=== PATIENT | male | born 1940 | race Caucasian/White ===

== ENCOUNTER 2017-01-08 15:31 | Inpatient (IN) | payer MEDICARE, BC ==
[~2017-01-08] VITALS: Ht 182.9 cm; Wt 114.1 kg
[2017-01-08] VITALS (15 sets, daily range): BP systolic 121–172; BP diastolic 61–84; PULSE 59–73; RESP 12–18; Ht 182.9 cm; Wt 114.1 kg
[~2017-01-08 15:31] MED LIST: ASPI-650 PO; LATA2.5D9 OP; LEVO100T82 PO; SILO8CAP PO
[2017-01-08] MEDS ORDERED: IODIXANOL LOCM 50 ML BTL ONE (15:44)
[2017-01-08] MEDS ORDERED: HEPARIN 1000 UNITS/ML 10 ML INJ ONE (15:44)
[2017-01-08] MEDS ORDERED: LIDOCAINE 2% (SDV) 5 ML INJ ONE (15:44)
[2017-01-08] MEDS ORDERED: IODIXANOL LOCM 100 ML BTL ONE (15:44)
[2017-01-08] MEDS ORDERED: NITROGLYCERIN (IC) 100 MCG/ML INJ ONE (15:45)
[2017-01-08] MEDS ORDERED: MIDAZOLAM 1 MG/ML 2 ML INJ ONE (15:45)
[2017-01-08] MEDS ORDERED: VERAPAMIL 5 MG INJ ONE (15:45)
[2017-01-08] MEDS ORDERED: FENTAnyl 50 MCG/ML VIAL ONE (15:45)
[2017-01-08] MEDS ORDERED: SOD CHLORIDE 0.9% 500 ML ONE (15:47)
[2017-01-08 15:51] LABS: BASOPHILS % 0.5 % (0.0-2.0); EOSINOPHILS # 0.1 10^3/ul (0.0-0.5); HEMATOCRIT 46.5 % (42.0-52.0); HEMOGLOBIN 15.9 g/dl (14.0-18.0); LYMPHOCYTES # 1.7 10^3/ul (0.8-2.9); LYMPHOCYTES % 18.4 % (15.0-51.0); MEAN CORPUSCULAR HEMOGLOBIN 29.4 pg (29.0-33.0); MEAN CORPUSCULAR HGB CONC 34.2 g/dl (32.0-37.0); MEAN PLATELET VOLUME 7.8 fl (7.4-10.4); MONOCYTE # 0.4 10^3/ul (0.3-0.9); MONOCYTES % 4.6 % (0.0-11.0); NEUTROPHIL # 6.9 10^3/ul (1.6-7.5); NEUTROPHILS % 75.5 % (39.0-77.0); PLATELET COUNT 220 10^3/UL (140-440); RED BLOOD COUNT 5.41 10^6/ul (4.70-6.10); RED CELL DISTRIBUTION WIDTH 13.2 % (11.5-14.5); UNCORRECTED WBC 9.2 10^3/ul (4.8-10.8); WHITE BLOOD COUNT 9.2 10^3/ul (4.8-10.8)
--- NOTE | 2017-01-08 15:55 | RADRPT ---
PROCEDURE: XR Chest. CLINICAL INDICATION: Chest pain TECHNIQUE: Chest AP portable. COMPARISON: No comparison available. FINDINGS: The mediastinal structures are unremarkable. There is calcification of the thoracic aorta (consiste nt with atherosclerosis). The heart is normal in size and configuration. The pulmonary vascularity i s normal. There are low lung volumes. There is mild bibasilar subsegmental atelectasis. The pleura l spaces are unremarkable. There are senescent changes of the axial skeleton. IMPRESSION: Mild bibasilar subsegmental atelectasis. RPTAT: HGDB .Gurpreet Mercer MD, Date Time Electronically viewed and signed by .Gurpreet Mercer MD, on 01/08/2017 15:55 .B/
[2017-01-08 15:57] LABS: CONDITION 1
[2017-01-08 15:59] LABS: POTASSIUM 4.6 mmol/L (3.5-5.1)
[2017-01-08 16:00] LABS: INR 0.96; PROTIME 12.8 Sec (12.2-14.2)
[2017-01-08] MEDS ORDERED: HEPARIN 1000 UNITS/ML 10 ML INJ IV ONE (16:00)
[2017-01-08] MEDS ORDERED: ASPIRIN 325 MG TAB PO ONE (16:00)
[2017-01-08 16:01] LABS: PARTIAL THROMBOPLASTIN TIME 27.6 Sec (25.0-35.0)
[2017-01-08 16:02] LABS: CREATININE 0.89 mg/dl (0.61-1.24)
[2017-01-08 16:03] LABS: CALCIUM 10.2 mg/dl (8.4-10.2)
[2017-01-08] MEDS ORDERED: TICAGRELOR 90 MG TABLET ONE (16:13)
--- NOTE | 2017-01-08 16:13 | ERA ---
ER Documentation Chief Complaint Date/Time DATE: 01/08/17 TIME: 16:09 Chief Complaint chest pain started x 1 hour ago HPI This is a 76-year-old male who presents to the emergency room with a chief complaint of chest pain. This patient states that he was doing yard work and noticed some chest pain in the center of his chest. He was a walk-in patient in in triage she did have an EKG done which did show ST elevation NV. The patient was immediately brought back to the main emergency room where I evaluated him. He describes his pain as a achy pain and pressure sensation in the center of his chest with no radiation. No associated nausea, vomiting, or diuresis ROS All systems reviewed and are negative except as per history of present illness. Medications Home Meds Reported Medications Aspirin (Aspirin) 81 Mg Tablet, 81 MG PO DAILY 12/11/12 Latanoprost (Xalatan) 2.5 Ml Drops, 2.5 ML OP HS 1 GTT BOTH EYES 12/11/12 Silodosin (Rapaflo) 8 Mg Capsule, 8 MG PO HS 12/11/12 Levothyroxine Sodium* (Levoxyl*) 100 Mcg Tablet, 100 MCG PO HS 12/11/12 Allergies Allergies: Coded Allergies: No Known Allergy (Unverified , 12/11/12) PMhx/Soc History of Surgery: Yes (KNEE,ANKLE) Anesthesia Reaction: No Hx Neurological Disorder: No Hx Respiratory Disorders: No Hx Cardiac Disorders: No Hx Psychiatric Problems: No Hx Miscellaneous Medical Probl: Yes (EPIDURALS) Hx Alcohol Use: No Hx Substance Use: No Hx Tobacco Use: No Smoking Status: Never smoker Physical Exam Vitals Vital Signs Date Time Temp Pulse Resp B/P Pulse Ox O2 Delivery O2 Flow Rate FiO2 01/08/17 15:50 Nasal Cannula 3 01/08/17 15:45 Nasal Cannula 2 01/08/17 15:42 97.8 73 18 178/85 95 Physical Exam INITIAL VITAL SIGNS: Reviewed by me GENERAL: The patient is well developed and appropriate for usual state of health in no apparent distress HEENT: Pupils equal, round, and reactive to light. EOMI. There is no scleral icterus. NECK: C-spine is soft and supple, there is no meningismus. There is no cervical lymphadenopathy. LUNGS: Clear to auscultation bilaterally. There are no rales, wheezes or rhonchi. HEART: Regular rate and rhythm, no murmurs, clicks, rubs or gallops. ABDOMEN: Soft, non-tender, non-distended. There are bowel sounds in all four quadrants. No rebound or guarding. EXTREMITIES: There is no peripheral cyanosis or edema. No focal swelling or erythema. NEUROLOGICAL: The patient moves all four extremities with 5/5 strength. Cranial nerves II - XII are intact. Normal gait. Alert and oriented SKIN: There is no apparent rash or petechiae. HEME/LYMPHATIC: There is no evidence of excessive bruising or lymphedema. PSYCHIATRIC: The patient does not appear anxious or depressed. Result Diagram: 01/08/17 1545 01/08/17 1545 Results 24 hrs Laboratory Tests Test 01/08/17 15:45 Activated Partial Thromboplast Time 27.6Sec Anion Gap 17 Basophils # 0.010^3/ul Basophils % 0.5% Blood Urea Nitrogen 20mg/dl Calcium Level 10.2mg/dl Carbon Dioxide Level 29mmol/L Chloride Level 100mmol/L Creatinine 0.89mg/dl Eosinophils # 0.110^3/ul Eosinophils % 1.0% Glucose Level 199mg/dl Hematocrit 46.5% Hemoglobin 15.9g/dl INR International Normalized Ratio 0.96 Lymphocytes # 1.710^3/ul Lymphocytes % 18.4% Mean Corpuscular Hemoglobin 29.4pg Mean Corpuscular Hemoglobin Concent 34.2g/dl Mean Corpuscular Volume 86.0fl Mean Platelet Volume 7.8fl Monocytes # 0.410^3/ul Monocytes % 4.6% Neutrophils # 6.910^3/ul Neutrophils % 75.5% Nucleated Red Blood Cells # 0.010^3/ul Nucleated Red Blood Cells % 0.0/100WBC Platelet Count 16612^3/UL Potassium Level 4.6mmol/L Prothrombin Time 12.8Sec Prothrombin Time Ratio 1.0 Red Blood Count 5.4110^6/ul Red Cell Distribution Width 13.2% Sodium Level 141mmol/L Troponin I Pending White Blood Count 9.210^3/ul Current Medications Medications (Trade) Dose Ordered Sig/Yoandy Route PRN Reason Start Time Stop Time Status Last Admin Dose Admin Aspirin (Aspirin) 325 mg ONCE ONCE PO 01/08/17 16:00 01/08/17 16:01 DC 2/19/17 15:48 Heparin Sodium (Porcine) (Heparin (1000 Units/ml)) 4,000 unit ONCE ONCE IV 01/08/17 16:00 01/08/17 16:01 DC 01/08/17 15:57 Procedures/MDM EKG: Rate/Rhythm: ST elevation NV QRS, ST, T-waves: ST elevation NV inferior leads Impression: ST elevation NV inferior leads Chest X-ray 1V Interpreted by me: Soft Tissue: No acute abnormalities Bones: No acute abnormalities Mediastinum/Cardiac Silhouette/Lungs: [No acute abnormalities] This is a 76-year-old male presents to the emergency room for evaluation of chest pain after doing yard work in his front yard. He did walk into the emergency room and had a triage EKG which showed ST elevation NV. At 1535 the patient was immediately brought back to the emergency room. I did activate code STEMI at 1539. Our women's swim coach, Dr. Cano was at bedside at 1544. This patient was then taken to lab support service tech. This patient's does state that the primary care physician is Dr. Zarate. I paged Dr. Zarate, and spoke with the on-call physician Dr. Toth who agrees to accept the patient at this time. Cardiac Critical Care: Excluding all billable procedures Time: 33 minutes Treatments/Evaluations: Close monitoring for dangerous arrhythmia and cardiovascular collapse, while treating with advance cardiac medications and techniques, multiple bedside evaluations, multiple consultations, coordination of nursing care, coordination of STEMI activation, chart review. Departure Diagnosis: Primary Impression: Acute ST elevation myocardial infarction (STEMI) Additional Impression: Chest pain Condition: Stable RIKY POWELL Jan 08, 2017 16:13
[2017-01-08 16:16] LABS: TROPONIN-I 0.278 ng/ml (0.00-0.12)
[2017-01-08] MEDS ORDERED: BIVALIRUDIN 250MG /NS 50 ML 50 ML IVPB ONE ×2 (16:24→16:53)
[2017-01-08] MEDS ORDERED: BIVALIRUDIN 250MG /NS 50 ML 50 ML IVPB SCH (16:45)
[2017-01-08] MEDS ORDERED: ACETAMINOPHEN 325 MG TAB PO PRN (17:00)
[2017-01-08] MEDS ORDERED: MAGNESIUM SULFATE 1 GM/D5W 100 ML IVPB ONE (17:00)
[2017-01-08] MEDS ORDERED: OXYCODONE/ACETAMINOPHEN (5/325) TAB PO PRN (17:00)
[2017-01-08] MEDS ORDERED: morphine 2 MG INJ IV PRN (17:00)
[2017-01-08] MEDS ORDERED: MAGNESIUM SULFATE 2 GM/50 ML 50 ML IVPB ONE (17:30)
[2017-01-08] MEDS: SOD CHLORIDE 0.9% 1,000 ML IV SCH ×2 (18:15→20:02)
[2017-01-08] MEDS: DOCUSATE SODIUM 100 MG CAP PO SCH (21:00)
[2017-01-08] MEDS ORDERED: AMIODARONE 150MG/D5W BOLUS 100 ML ONE (21:03)
[2017-01-08] MEDS: LEVOTHYROXINE 100 MCG TAB PO SCH (21:10)
[2017-01-08] MEDS: FAMOTIDINE 20 MG TAB PO SCH (21:11)
[2017-01-08] MEDS: TICAGRELOR 90 MG TABLET PO SCH (21:11)
[2017-01-08] MEDS: ATORVASTATIN 80 MG TAB PO SCH (21:11)
[2017-01-08] MEDS ORDERED: AMIODARONE 150MG/D5W BOLUS 100 ML IV ONE (21:30)
[2017-01-08] MEDS: ISOSORBIDE DINITRATE 20 MG TAB PO SCH (22:06)
[2017-01-08 22:07] LABS: CK-MB 54.2 ng/ml (0.0-2.4); TROPONIN-I 10.6 ng/ml (0.00-0.12)
[2017-01-09] VITALS (32 sets, daily range): BP systolic 91–146; BP diastolic 40–90; PULSE 45–61; RESP 10–19
[2017-01-09 05:10] LABS: ALBUMIN 3.6 g/dl (3.3-4.9)
[2017-01-09 05:11] LABS: POTASSIUM 4.3 mmol/L (3.5-5.1)
[2017-01-09 05:12] LABS: CREATININE 0.76 mg/dl (0.61-1.24)
[2017-01-09 05:13] LABS: ALBUMIN/GLOBULIN RATIO 1.12; BILIRUBIN,INDIRECT 0.5 mg/dl (0-1.1); BILIRUBIN,TOTAL 0.5 mg/dl (0.2-1.3); CALCIUM 9.2 mg/dl (8.4-10.2); TOTAL PROTEIN 6.8 g/dl (6.1-8.1)
[2017-01-09 05:14] LABS: CHOL/HDL RATIO 4.4 RATIO; MAGNESIUM 2.2 mg/dl (1.7-2.5)
[2017-01-09 05:44] LABS: THYROID STIMULATING HORMONE 1.76 MIU/L (0.465-4.680)
[2017-01-09 06:10] LABS: CK-MB 65.6 ng/ml (0.0-2.4); TROPONIN-I 20.1 ng/ml (0.00-0.12)
[2017-01-09 06:40] LABS: BASOPHILS % 0.4 % (0.0-2.0); EOSINOPHILS # 0.2 10^3/ul (0.0-0.5); EOSINOPHILS % 2.5 % (0.0-7.0); HEMATOCRIT 39.4 % (42.0-52.0); HEMOGLOBIN 13.6 g/dl (14.0-18.0); LYMPHOCYTES # 1.6 10^3/ul (0.8-2.9); LYMPHOCYTES % 19.5 % (15.0-51.0); MEAN CORPUSCULAR HEMOGLOBIN 29.8 pg (29.0-33.0); MEAN CORPUSCULAR HGB CONC 34.6 g/dl (32.0-37.0); MEAN CORPUSCULAR VOLUME 86.3 fl (82.0-101.0); MEAN PLATELET VOLUME 8.4 fl (7.4-10.4); MONOCYTE # 0.8 10^3/ul (0.3-0.9); MONOCYTES % 9.9 % (0.0-11.0); NEUTROPHIL # 5.4 10^3/ul (1.6-7.5); NEUTROPHILS % 67.7 % (39.0-77.0); PLATELET COUNT 196 10^3/UL (140-440); RED BLOOD COUNT 4.57 10^6/ul (4.70-6.10); RED CELL DISTRIBUTION WIDTH 13.5 % (11.5-14.5)
[2017-01-09 06:43] LABS: CONDITION 1
--- NOTE | 2017-01-09 06:46 | CONS ---
DATE OF ADMISSION: 01/08/2017 DATE OF CONSULTATION: 01/08/2017 TYPE OF CONSULTATION: Emergent interventional cardiology. REASON FOR CONSULTATION: ST elevation myocardial infarction. CHIEF COMPLAINT: Chest pain. HISTORY OF PRESENT ILLNESS: Thank you for this referral. History obtained from the patient, diamante mccallum with his , discussion with the ER physician, Dr. Fabian, discussion with the staff, otfus mccallum with the patient's primary care physician, Dr. Zarate. This is a pleasant 76-year-old gentleman with no past cardiac history who had sudden onset of anterior chest pain and pressure, severe, abou t an hour and a half prior to arriving to the hospital. The patient came to the emergency room. EK G was done which showed inferior STEMI code and STEMI was activated. The patient was immediately ev aluated by myself. His EKG was reviewed, appeared to confirm the ST elevation myocardial infarction . The patient continues to have chest pain. The patient was taken to the label paster for emergent car diac catheterization, which showed 100% occlusion of the distal right coronary artery. It was a suc cessful angioplasty and stent using a drug-eluting stent. The patient is currently chest pain-free. PAST MEDICAL HISTORY: History of hypothyroidism, on medication, history of prostate cancer status p ost radiation, history of osteoarthritis of the knee, status post surgery of the knees. SOCIAL HISTORY: The patient does not smoke currently. Minimal alcohol. FAMILY HISTORY: Denies any history of early coronary artery disease. ALLERGIES: NO REPORTED DRUG ALLERGY. MEDICATIONS: Per medical reconciliation, personally reviewed. He does take aspirin 81 every day an d is on Synthroid as well. REVIEW OF SYSTEMS: He has some knee pain, otherwise denied all other review of systems except for a emely-mentioned. PHYSICAL EXAMINATION: VITAL SIGNS: Temperature 97.8, heart of 73. Blood pressure initially was 178/85, most recent ly has been 140/55, respiratory rate of 18. HEENT: Normocephalic, atraumatic. Slightly anxious and distressed in the emergency room, currently calm. EYES: Pupils equal and round. CARDIOVASCULAR: Regular rate and rhythm with grade 1 systolic murmur. PULMONARY: With no wheezes or rhonchi. GASTROINTESTINAL: Soft, nontender. EXTREMITIES: With no significant lower extremity edema. NEUROLOGIC: Awake, alert x3. PSYCHIATRIC: Calm and pleasant. DIAGNOSTIC DATA: EKG showed normal sinus rhythm with inferior ST elevation myocardial infarction __ ___ reciprocal changes in the lateral leads. LABORATORY: Sodium 141, potassium 4.6, BUN of 20, creatinine 0.89, glucose 199. Troponin 0.27 and WBC of 9.2, hemoglobin 15.9, platelets 220. The chest x-ray read by radiologist shows mild basilar segmental atelectasis. ASSESSMENT AND PLAN: 1. Acute inferior ST elevation myocardial infarction. 2. Status post emergent percutaneous coronary intervention of right coronary artery using a drug-el uting sent. 3. Multivessel coronary artery disease including a mid left anterior descending 70% stenosis. 4. Hypertension. 5. History of thyroid disorder. 6. Rule out dyslipidemia. 7. History of prostate cancer and radiation therapy. RECOMMENDATIONS: Patient will be admitted to intensive care unit. He will be placed on aspirin, Br ilinta Carvedilol, lisinopril and statins. Patient to be ambulatory. The patient will do bed rest for the next few hours until there is no bleeding from the groin, after that would be ambulatory. A ngiomax will be continued at the maintenance dose for the next 4 hours as long as there is no bleedi ng. Discussed with the patient's in detail. Discussed with the patient's primary care doctor, Dr. Zarate. Dictated By: KEVON MEADOWS MD AV/PAULETTE Conf#: [id number] DID#: [id number] CC: UBALDO ZARATE MD;*EndCC*
--- NOTE | 2017-01-09 06:47 | SP ---
DATE OF PROCEDURE: 01/08/2017 PROCEDURE PERFORMED: 1. Emergent left heart catheterization, selective right and left coronary angiography. 2. Thrombectomy, right coronary artery. 3. Successful percutaneous transluminal coronary angioplasty and stenting of the distal right coron hai artery from 100% occlusion to no significant residual stenosis using a 3 x 12 mm Promus drug-elu ting stent, post-dilating with a 3.5 noncompliant balloon. 4. Right femoral angiogram and closure of right femoral artery using a Perclose device. SURGEON: Kevon Cano MD INDICATIONS: This is a pleasant 76-year-old gentleman with history of hypothyroidism, prostate CA, who presented with inferior ST elevation myocardial infarction. FINDINGS: 1. Left main coronary is a large vessel; had 10% distal stenosis. 2. Left anterior descending is a moderate-sized vessel. Proximally is patent. Mid level has a foc al area of about 40% to 50% stenosis and another focal area of about 70% stenosis. Diagonal is a mo derate to large sized vessel with about 60% to 70% stenosis. 3. Ramus intermedius is a moderate sized vessel with 50% stenosis. 4. Left circumflex artery is a small vessel with about 40% ostial stenosis. It gives rise to 1 sma ll obtuse marginal. 5. Right coronary is a large, dominant vessel. Distally has 100% occlusion with evidence of intral uminal thrombus. After successful PTCA stenting of this lesion, there was no significant residual s tenosis left. LV systolic pressure was 140. LVEDP of 15, aortic pressure with pullback is 140/55. Ejection fraction about 45% with inferior wall hypokinesis. DESCRIPTION OF PROCEDURE: Written informed consent was discussed with the patient and his in d etail. Patient was emergently brought to the molder labels and placed in supine position. Right and lef t groins were prepped and draped in sterile fashion. Groin was anesthetized with 1% lidocaine, mobi lizing a 6-Gibraltarian sheath placed in right femoral artery. A JL4 catheter was advanced and engaged in the left main coronary artery. Angiogram was obtained. JR4 guiding catheter was advanced, and lef t coronary angiogram was obtained. BMW wire used across the lesion, 2.5 x 8 across the lesion, infl ated. Angiogram was obtained. Then, was used, and thrombectomy was done. Clots were removed . Intracoronary verapamil was given, and angiogram was obtained. Then, I used a 3 x 12 mm Promus d rug-eluting stent, which was placed across the lesion and deployed at 16 atmospheres. Angiogram was obtained. Finally, a 3.5 x 6 noncompliant balloon was within the stent and postdilated the stent u p to 18 atmospheres. Final angiogram was obtained, which showed STAN 3 flow, no evidence of dissect ion, no significant residual stenosis. Catheter and Glidewire . Pigtail was advanced and enga ged in the left main. Hemodynamics recorded. Pullback aortic pressure was measured. The pigtail w as advanced to the left main; hemodynamics recorded. LV gram performed. Pullback aortic pressure w as measured. Catheter and Glidewire removed. Right femoral angiogram was performed. Perclose was successfully deployed. Patient tolerated the procedure without complication. Patient is transferred to recovery room in st able condition. IMMEDIATE COMPLICATIONS: None. TOTAL CONTRAST USED: 75 mL of . CONCLUSION: Successful PTCA stent thrombectomy of the distal right coronary artery from 100% occlus ion to no significant residual stenosis using a drug-eluting stent. RECOMMENDATIONS: Aggressive medical therapy. ICU care overnight. Staged PCI of the LAD in a coupl e of days if patient's creatinine remains stable. Dictated By: KEVON NAJERA/PAULETTE Conf#: [id number] DID#: [id number]
[2017-01-09] MEDS: ASPIRIN (EC) 81 MG TAB PO SCH (08:34)
[2017-01-09] MEDS: DOCUSATE SODIUM 100 MG CAP PO SCH ×2 (08:35→20:50)
[2017-01-09] MEDS: FAMOTIDINE 20 MG TAB PO SCH ×2 (08:35→20:47)
[2017-01-09] MEDS: LISINOPRIL 5 MG TAB PO SCH (08:36)
[2017-01-09] MEDS: ISOSORBIDE DINITRATE 20 MG TAB PO SCH ×3 (08:36→20:47)
[2017-01-09] MEDS: TICAGRELOR 90 MG TABLET PO SCH ×2 (08:38→20:48)
--- NOTE | 2017-01-09 15:06 | RADRPT ---
Echocardiogram Report Patient Name: THELMA OSUNA Gender: Male Date: 1940 Study Date: 09-Jan-2017 Securities Dealer: [facility] Location: 112 Ref. Physician: KEVON CANO Quality: Technically Difficult Study Procedures: Transthoracic echocardiogram with complete 2D, M-Mode, and doppler examination. Indications: STEMI. 2D/M Mode Doppler Measurement Value Normal Ranges Measurement Value Normal Ranges LVIDd 2D 5.7 3.5 - 5.6 cm AV Peak Torsten 1.3 m/sec LVIDs 2D 4.1 2.1 - 4.1 cm AV Peak PG 6.3 mmHg LVPWd 2D 0.9 0.6 - 1.1 cm LVOT Peak Torsten 1.3 m/sec IVSd 2D 1.5 0.6 - 1.1 cm MV E Peak Torsten 0.6 m/sec AoR Diam 2D 2.9 2.0 - 3.7 cm MV A Peak Torsten 0.8 m/sec EF 2D 53.0 50.0 - 65.0 % MV E/A 0.8 LA Dimen 2D 4.7 2.3 - 4.0 cm MV Decel Time 230 msec IVC Diam 1.8 1.2 - 2.0 MV Decel [place] 3 Lateral E` 0.1 m/sec Septal E` 0.0 m/sec E/E` 5.8 MV E/A 0.8 Findings Left Ventricle: Overall, normal left ventricular systolic function. Not all segments visualized. Left ventricular wall thickness upper limits of normal. Mild enlargement of left ventricle cavity. Ejection fraction is visually estimated at 55 %. Abnormal Diastolic Function. Right Ventricle: Normal right ventricular size. Normal right ventricular systolic function. Left Atrium: The left atrium is normal in size. There is mild enlargement of left atrium. Right Atrium: The right atrium is normal in size. Mitral Valve: Mild mitral annular calcification. Trace mitral regurgitation. Aortic Valve: Trileaflet aortic valve. Trace aortic valve regurgitation. Tricuspid Valve: Tricuspid valve not well visualized. There is trace tricuspid regurgitation. Pulmonic Valve: There is trace pulmonic regurgitation. Pericardium: Normal pericardium with no significant pericardial effusion. Aorta: Normal aortic root. IVC: Normal size and normal respiratory collapse consistent with normal right atrial pressure. Conclusions 1.Overall, normal left ventricular systolic function. Not all segments visualized. Left ventricular wall thickness upper limits of normal. Mild enlargement of left ventricle cavity. Ejection fraction is visually estimated at 55 %. Abnormal Diastolic Function. 2.Mild mitral annular calcification. Trace mitral regurgitation. 3.Trileaflet aortic valve. Trace aortic valve regurgitation. 4.Tricuspid valve not well visualized. There is trace tricuspid regurgitation. Electronically Signed By: Kevon Cano 09-Jan-2017 15:05:55 -0800 Patient Name: THELMA OSUNA Study Date: 09-Jan-2017 [id number]
--- NOTE | 2017-01-09 15:54 | PN ---
DATE: 01/09/2017 CARDIOLOGY FOLLOWUP SUBJECTIVE: Discussed with the staff. Discussed with the patient's . The patient remains in si nus rhythm. Patient had episode of nonsustained VT overnight. Amiodarone dose bolus was given. Den ies any chest pain or pressure to me. Has minimal groin discomfort. He was able to walk around. MEDICATIONS: Reviewed, which include: 1. Aspirin. 2. Lisinopril. 3. Carvedilol 6.25. 4. Amiodarone dose was given bolus only. 5. Brilinta. 6. Imdur. 7. Pepcid. 8. Lipitor 80. 9. Levothyroxine. PHYSICAL EXAMINATION: VITAL SIGNS: Temperature 98.5, heart rate of 53, blood pressure of 119/47, respiratory rate of 18. Saturating 96%. HEENT: Normocephalic, atraumatic. Pupils are equal. CARDIOVASCULAR: Bradycardic. Systolic murmur. PULMONARY: With no wheezes, no rhonchi. GASTROINTESTINAL: Soft, nontender. No rebound or guarding. EXTREMITIES: With no significant lower extremity edema. NEUROLOGIC: Awake, alert x3. VASCULAR: Right femoral with no bleeding, no hematoma. No bruit. ASSESSMENT AND PLAN: 1. Acute inferior ST elevation myocardial infarction. 2. Multivessel coronary artery disease including the left anterior descending. 3. Nonsustained ventricular tachycardia. 4. History of hypertension 5. Hypothyroidism. 6. Dyslipidemia. 7. History of prostate cancer. RECOMMENDATIONS: Echocardiogram with normal LV systolic function. I will decrease the carvedilol d ue to bradycardia to only 3.125 b.i.d. PLAN: Given his recurrent nonsustained VT will plan for coronary angiography and possible PCI of th e LAD and diagonal tomorrow. This plan has been discussed with the patient and the again. Con sent was obtained. Dictated By: KEVON MEADOWS MD AV/NTS Conf#: [id number] DID#: [id number] CC: UBALDO SERVIN MD;*EndCC*
--- NOTE | 2017-01-09 18:50 | HP ---
DATE OF ADMISSION: 01/08/2017 HISTORY OF PRESENT ILLNESS: Mr. Vidales is a retired 76-year-old male, relatively active, teaches golf to young people, active around the house with generally no complaints. He has history of hypothyroidism, glaucoma, and prostate cancer, all which have been well controlled. The patient was working in the yard on the day of admission when he suddenly had a peculiar feeling in his chest and started to feel sick, had multiple episodes of clear fluid vomiting, tried to lie down, felt no better, and came to the emergency room where he was found to have acute STEMI in with indications o f inferior myocardial infarction. He was seen by Dr. Cano in the ER, taken to laborer pipelines where he h ad a totally occluded right coronary artery, which was opened successfully. The patient's troponins were obviously high. He has had some episodes of nonsustained ventricular tachycardia post-cathete rization requiring one episode of intravenous amiodarone. The patient currently is asymptomatic, fe els well. The thought is that further angiographic evaluation should proceed tomorrow. PAST MEDICAL HISTORY: The patient underwent a prostate biopsy and was found to have prostate cancer , 2 cores, Gonsalo 6. Further biopsy after post-MRI fusion evaluation reveals Gonsalo 7, prostate c ancer. He was treated with radiation and he has not taken Lupron and he is on the watchful waiting track. He takes Xalatan for glaucoma. He takes thyroid replacement for hypothyroidism and Rapaflo. The patient has been placed on the usual post-VA medications in the hospital. Other medical probl ems include hyperlipidemia, history of hepatitis A. PAST SURGICAL HISTORY: LASIK vision surgery, total knee replacement on the left, and the previously noted prostatic biopsy and radiation. SOCIAL HISTORY: The patient does not smoke cigarettes nor drink significant amounts of alcohol. Tx s last Pneumovax was in 01/2016, as was his tetanus shot. Zoster vaccination in 11/2012. He is up to date on his shots as well. REVIEW OF SYSTEMS: Otherwise unremarkable. History of colonoscopy in 2016. PHYSICAL EXAMINATION: GENERAL: Reveals a pleasant, alert gentleman lying in bed. is in the room as well. VITAL SIGNS: Blood pressure 119/70, pulse 52, he is afebrile, normal sats on room air. HEAD, EARS, EYES, NOSE, AND THROAT: Unremarkable. Mouth is unremarkable. NECK: Supple. No carotid bruits appreciated. CHEST: Clear. HEART: Tones regular. ABDOMEN: Soft. Angiographic site of the left groin is noted. EXTREMITIES: No clubbing, cyanosis, edema. Good peripheral pulses. TKR scar on the left knee. IMPRESSION: 1. Post-ST elevated myocardial infarction with a total right coronary artery occlusion, post succes sful percutaneous transluminal coronary angioplasty stent, thrombectomy distal right coronary artery with a drug-eluting stent. The patient was also found at the time of angiogram to have 2 moderate focal obstructions of the left anterior descending. 2. History of in-hospital with ventricular tachycardia, not recurrent. 3. Hypothyroidism. 4. Glaucoma. DISCUSSION: At this point, the patient is stable. Dr. Cano is planning on a staged PCI of the LA D tomorrow. I think at this point that would be in order. His laboratory tests at this point revea l no creatinine bump with contrast. His troponin high is 20 from 0.278 on admission. Cholesterol t otal 216, LDL 141, HDL 49. TSH is 1.7. He has been placed on lisinopril and Brilinta, Isordil, and Pepcid. His L-thyroxine has been continued. He is on atorvastatin 80 mg. At this point, the elias ent is stable and I would agree with cardiology plans. Thank you for asking us to see him at this time. Dr. Zarate will continue his followup. Dictated By: CHECO WRIGHT MD SR/NTS Conf#: [id number] DID#: [id number] CC: KEVON CANO MD;*End*
[2017-01-09] MEDS: ATORVASTATIN 80 MG TAB PO SCH (20:46)
[2017-01-09] MEDS: LEVOTHYROXINE 100 MCG TAB PO SCH (20:47)
[2017-01-10] VITALS (28 sets, daily range): BP systolic 92–144; BP diastolic 36–100; PULSE 41–65; RESP 10–25
[2017-01-10 05:00] LABS: BASOPHILS % 0.5 % (0.0-2.0); EOSINOPHILS # 0.4 10^3/ul (0.0-0.5); EOSINOPHILS % 4.8 % (0.0-7.0); HEMATOCRIT 38.8 % (42.0-52.0); HEMOGLOBIN 13.2 g/dl (14.0-18.0); LYMPHOCYTES # 2.4 10^3/ul (0.8-2.9); LYMPHOCYTES % 29.3 % (15.0-51.0); MEAN CORPUSCULAR HEMOGLOBIN 29.4 pg (29.0-33.0); MEAN CORPUSCULAR HGB CONC 34.1 g/dl (32.0-37.0); MEAN CORPUSCULAR VOLUME 86.1 fl (82.0-101.0); MEAN PLATELET VOLUME 8.2 fl (7.4-10.4); MONOCYTE # 0.7 10^3/ul (0.3-0.9); MONOCYTES % 8.8 % (0.0-11.0); NEUTROPHIL # 4.7 10^3/ul (1.6-7.5); NEUTROPHILS % 56.6 % (39.0-77.0); PLATELET COUNT 190 10^3/UL (140-440); RED CELL DISTRIBUTION WIDTH 13.3 % (11.5-14.5); UNCORRECTED WBC 8.2 10^3/ul (4.8-10.8); WHITE BLOOD COUNT 8.2 10^3/ul (4.8-10.8)
[2017-01-10 05:09] LABS: ALBUMIN 3.5 g/dl (3.3-4.9); POTASSIUM 4.5 mmol/L (3.5-5.1)
[2017-01-10 05:11] LABS: BILIRUBIN,INDIRECT 0.8 mg/dl (0-1.1); BILIRUBIN,TOTAL 0.8 mg/dl (0.2-1.3); CREATININE 0.88 mg/dl (0.61-1.24)
[2017-01-10 05:12] LABS: ALBUMIN/GLOBULIN RATIO 1.25; CALCIUM 9.7 mg/dl (8.4-10.2); TOTAL PROTEIN 6.3 g/dl (6.1-8.1)
[2017-01-10 05:13] LABS: MAGNESIUM 2.2 mg/dl (1.7-2.5)
[2017-01-10 05:18] LABS: CK-MB 16.3 ng/ml (0.0-2.4); TROPONIN-I 10.6 ng/ml (0.00-0.12)
[2017-01-10 05:56] LABS: CONDITION 1
--- NOTE | 2017-01-10 08:11 | PN ---
Date/Time of Note Date/Time of Note DATE: 01/10/17 TIME: 08:09 Assessment/Plan VTE Prophylaxis VTE Prophylaxis Intervention: other Lines/Catheters IV [facility]ter [facility]from [facility] Saline Lock Urinary Cath still in place: No Assessment/Plan Problems: (1) Acquired hypothyroidism Status: Chronic Comment: He remains on replacement therapy without comp without compromise (2) Essential hypertension Status: Chronic Comment: On medications immediately post STEMI he is doing well. Please note we will have to watch for bradycardia (3) Acute ST elevation myocardial infarction (STEMI) Status: Acute Comment: He is medially status post angioplasty. His symptoms have resolved and his troponins are falling rapidly. He does have an LAD lesion for which she is scheduled for a second intervention later today. Does have a rather interesting bradycardia on very low-dose beta blockade which will be observed and managed as per the guidance of our cardiology colleagues. He is on full dose statin therapy and Brilinta Qualifiers: Involved coronary artery: right coronary artery Qualified Code: I21.11 - Acute ST elevation myocardial infarction (STEMI) involving right coronary artery (4) Prostate cancer Status: Chronic Comment: Noted Subjective 24 Hr Interval Summary Free Text/Dictation Patient reports that he has some discomfort at the angiography access site in the groin but otherwise is doing well. Constitutional: no complaints (No fevers chills or sweats) Respiratory: no complaints (No shortness of breath no wheezing) Cardiovascular: no complaints (No chest pain chest tightness noted the symptoms that led him to come to the hospital emergency room) Gastrointestinal: no complaints (No nausea or) Exam/Review of Systems Vital Signs Vitals Vital Signs Date Time Temp Pulse Resp B/P Pulse Ox O2 Delivery O2 Flow Rate FiO2 01/10/17 07:00 44 10 114/67 96 Room Air 01/10/17 04:00 98.4 01/08/17 21:00 2.0 Intake and Output 01/09/17 01/09/17 01/10/17 15:00 23:00 07:00 Intake Total 580 ml 340 ml Output Total 325 ml 660 ml 320 ml Balance 255 ml -320 ml -320 ml Exam Constitutional: alert, oriented Neck: non-tender, supple Respiratory: clear to auscultation, normal air movement Cardiovascular: nl pulses, regular rate and rhythm Gastrointestinal: nl liver, spleen, non-tender, soft Extremities: normal pulses (Please note that he does have a bit of a bruise at the access point in the right groin) Results Result Diagram: 01/10/175 01/10/17 0435 Results 24 hrs Laboratory Tests Test 01/10/17 04:35 Alanine Aminotransferase (ALT/SGPT) 50 Albumin 3.5 Albumin/Globulin Ratio 1.25 Alkaline Phosphatase 55 Anion Gap 16 Aspartate Amino Transf (AST/SGOT) 108 H Basophils # 0.0 Basophils % 0.5 Blood Urea Nitrogen 22 H Calcium Level 9.7 Carbon Dioxide Level 26 Chloride Level 105 Creatine Kinase 296 #H Creatine Kinase Index 5.5 Creatinine 0.88 Creatinine Kinase MB (Mass) 16.30 H Direct Bilirubin 0.00 Eosinophils # 0.4 Eosinophils % 4.8 Globulin 2.80 Glucose Level 117 Hematocrit 38.8 L Hemoglobin 13.2 L Indirect Bilirubin 0.8 Lymphocytes # 2.4 Lymphocytes % 29.3 Magnesium Level 2.2 Mean Corpuscular Hemoglobin 29.4 Mean Corpuscular Hemoglobin Concent 34.1 Mean Corpuscular Volume 86.1 Mean Platelet Volume 8.2 Monocytes # 0.7 Monocytes % 8.8 Neutrophils # 4.7 Neutrophils % 56.6 Nucleated Red Blood Cells # 0.0 Nucleated Red Blood Cells % 0.0 Platelet Count 190 Potassium Level 4.5 Red Blood Count 4.50 L Red Cell Distribution Width 13.3 Sodium Level 142 Total Bilirubin 0.8 Total Protein 6.3 Troponin I 10.600 *H White Blood Count 8.2 Medications Medications Current Medications Aspirin (Halfprin) 81 mg DAILY PO Last administered on 01/09/17 08:34; Admin Dose 81 MG; Start 01/09/17 at 09:00 Ticagrelor (Brilinta) 90 mg BID PO Last administered on 01/09/17 20:48; Admin Dose 90 MG; Start 01/08/17 at 21:00 Isosorbide Dinitrate (Isordil) 10 mg TID PO Last administered on 01/09/17 20: 47; Admin Dose 10 MG; Start 01/08/17 at 21:00 Acetaminophen (Tylenol Tab) 650 mg Q4H PRN PO NON-CARDIAC PAIN LEVEL 1-3; Start 01/08/17 at 17:00 Oxycodone/ Acetaminophen (Percocet (5/ 325)) 1 tab Q4H PRN PO REPORTED NON- CARDIAC PAIN 4-7; Start 01/08/17 at 17:00 Morphine Sulfate (morphine) 1 mg Q1H PRN IV PAIN NOT RELIEVED BY OTHERS; Start 01/08/17 at 17:00 Docusate Sodium (Colace) 100 mg BID PO Last administered on 01/09/17 08:35; Admin Dose 100 MG; Start 01/08/17 at 21:00 Famotidine (Pepcid) 20 mg Q12 PO Last administered on 01/09/17 20:47; Admin Dose 20 MG; Start 01/08/17 at 21:00 Atorvastatin Calcium (Lipitor) 80 mg DAILY@21 PO Last administered on 20:46; Admin Dose 80 MG; Start 01/08/17 at 21:00 Lisinopril (Zestril) 2.5 mg DAILY PO Last administered on 01/09/17 08:36; Admin Dose 2.5 MG; Start 01/09/17 at 09:00 Levothyroxine Sodium (Synthroid) 100 mcg HS PO Last administered on 01/09/17 20:47; Admin Dose 100 MCG; Start 01/08/17 at 21:00 Carvedilol (Coreg) 3.125 mg BID PO ; Start 01/09/17 at 21:00 Acetylcysteine (Nac) 1,200 mg BID PO ; Start 01/10/17 at 09:00; Stop 01/13/17 at 08:59; Status UBALDO ZAZUETA MD Jan 10, 2017 08:11
[2017-01-10] MEDS: ASPIRIN (EC) 81 MG TAB PO SCH (08:34)
[2017-01-10] MEDS: DOCUSATE SODIUM 100 MG CAP PO SCH ×2 (08:35→20:13)
[2017-01-10] MEDS: TICAGRELOR 90 MG TABLET PO SCH ×2 (08:35→20:05)
[2017-01-10] MEDS: LISINOPRIL 5 MG TAB PO SCH (08:38)
[2017-01-10] MEDS: ISOSORBIDE DINITRATE 20 MG TAB PO SCH ×3 (08:38→20:12)
[2017-01-10] MEDS: FAMOTIDINE 20 MG TAB PO SCH ×2 (08:38→20:13)
[2017-01-10] MEDS ORDERED: VERAPAMIL 5 MG INJ ONE ×2 (10:51→12:39)
[2017-01-10] MEDS ORDERED: HEPARIN 1000 UNITS/ML 10 ML INJ ONE ×7 (10:51→16:14)
[2017-01-10] MEDS ORDERED: IODIXANOL LOCM 100 ML BTL ONE ×2 (10:51→15:54)
[2017-01-10] MEDS ORDERED: LIDOCAINE 1% (MDV) 20 ML INJ ONE (10:51)
[2017-01-10] MEDS ORDERED: MIDAZOLAM 1 MG/ML 2 ML INJ ONE (10:51)
[2017-01-10] MEDS ORDERED: NITROGLYCERIN (IC) 100 MCG/ML INJ ONE ×2 (10:51→13:42)
[2017-01-10] MEDS ORDERED: FENTAnyl 50 MCG/ML VIAL ONE (10:51)
[2017-01-10] MEDS ORDERED: IODIXANOL LOCM 50 ML BTL ONE (10:51)
[2017-01-10] MEDS ORDERED: SOD CHLORIDE 0.9% 500 ML ONE (11:09)
--- NOTE | 2017-01-10 11:52 | PN ---
DATE: 01/10/2017 CARDIOLOGY FOLLOWUP SUBJECTIVE: The patient with no chest pain, no pressure, no palpitations overnight. No more V-tach overnight noted. MEDICATIONS: Reviewed, which include: 1. Coreg, which had to be held due to low blood pressure. 2. Aspirin. 3. Lisinopril 2.5. 4. Brilinta. 5. Imdur. 6. Lipitor. 7. Levothyroxine. PHYSICAL EXAMINATION: VITAL SIGNS: Temperature 98.4, heart rate of 44, blood pressure 114/67, respiratory rate of 14. HEENT: Normocephalic, atraumatic. Pupils are equal. CARDIOVASCULAR: Bradycardic. PULMONARY: With no wheezes. GASTROINTESTINAL: Soft, nontender. EXTREMITIES: With no significant lower extremity edema. Ata test of the left radial was normal. NEUROLOGIC: Awake and alert. PSYCHIATRIC: Calm, pleasant. LABORATORY DATA: WBC of 8.2, hemoglobin 13.2, platelets of 190. Sodium 142, potassium 4.5, BUN of 22, creatinine 0.88, glucose 117. Troponin has come down to 10. CK of 296. MB fraction of 16. ASSESSMENT AND PLAN: 1. Acute inferior ST elevation myocardial infarction. 2. Status post emergent percutaneous coronary intervention of right coronary artery. 3. Multivessel coronary artery disease including left anterior descending disease. 4. Hypertension. 5. . 6. Sinus bradycardia. 7. History of prostate carcinoma. RECOMMENDATIONS: We will discontinue the carvedilol due to his bradycardia. He has not been able t o tolerate it and has not been getting it anyway for now. We will continue with aspirin and Brilint a. We will continue with the rest of his cardiac care. Plan for PCI of his LAD today. Risks, bene fits and alternatives discussed with the patient. Risks include infection, vascular complicat ion, bleeding complication, UT, stroke, arrhythmia, renal failure, etc., discussed with the patient. The patient has consented to procedure. Dictated By: KEVON MEADOWS MD AV/PAULETTE Conf#: [id number] DID#: [id number] CC: UBALDO SERVIN MD;*EndCC*
[2017-01-10] MEDS: ACETYLCYSTEINE 600 MG CAP PO SCH ×2 (13:49→20:12)
[2017-01-10] MEDS ORDERED: SOD CHLORIDE 0.9% 1,000 ML IV SCH (16:19)
--- NOTE | 2017-01-10 17:22 | SP ---
DATE OF PROCEDURE: 01/10/2017 NAME OF PROCEDURE: 1. Selective right and left coronary angiography. 2. Successful direct stenting of the mid LAD using a 2.75 x 12 mm Promus drug-eluting stent. 3. Successful percutaneous transluminal coronary angioplasty stenting of the diagonal using a 2.25 x 26 mm Resolute drug-eluting stent. SURGEON: Kevon Cano MD CLINICAL INDICATIONS: A 76-year-old gentleman who presented with inferior ST elevation myocardial i nfarction 2 days ago. Underwent successful PCI of the right coronary artery. The patient with post -CO nonsustained VT. The angiogram stenting also shows significant LAD diagonal stenosis. We were told not to perform PCI of the lesion at that time because this were not the culprit lesion. The pa tient was brought back for the PCI of this lesion today. DESCRIPTION OF PROCEDURE: Written informed consent was obtained. The risks and benefits were discu ssed with the patient in detail. The patient went to the cardiac cath rn and placed in supine position. T he left wrist area was prepped and draped in sterile fashion. Left wrist was anesthetized with 1% l idocaine. A 6-Comor[place] sheath was placed in left radial artery. JR4 catheter was advanced and engage d into the right coronary artery and angiogram was obtained. Then, the JL3.5 guiding catheter was a dvanced and engaged in the left main coronary artery. Angiogram was obtained. It was decided to pr oceed with PCI of the left anterior descending. A BMW wire used across the LAD lesion, placed in d istal LAD. A 2.75 x 12 mm Promus drug-eluting stent was placed across the lesion and deployed it at 12 atmospheres. Angiogram was obtained which showed STAN 3 flow, no evidence of dissection, no sig nificant residual stenosis. Then, the wire was redirected toward the diagonal. It could not get to the distal portion of the diagonal due to the tortuosity at the time. We changed the wire to a PT Light Support, which was advanced across the lesion in the distal diagonal. A 2.0 x 15 mm balloon w as used to dilate the distal portion of the diagonal artery. Then, it was placed into the proximal diagonal and predilated the vessel. Finally, I used a 2.25 x 26 mm Resolute drug-eluting stent olivier h was across the diagonal lesion and deployed it at 14 atmospheres. Final angiogram was obtained wh ich was deployed at 16 atmospheres. Final angiogram was obtained. STAN 3 flow, no evidence of diss ection, no significant residual stenosis. Catheter and Glidewire were removed. Radial sheath to be removed as per protocol. IMMEDIATE COMPLICATIONS: None. FINDINGS: 1. Left main coronary artery is normal. 2. Left anterior descending artery proximally appeared to have mild disease. Mid-level has 70% to 80% stenosis which was successfully stented with no significant residual stenosis. Diagonal is a mo derate sized diagonal. The proximal portion has about 70% stenosis. At the distal portion is a [place] y small vessel about 80% stenosis. After successful PTCA stenting of the proximal lesion, no signif icant residual stenosis left. Distal portion was angioplastied, is a small vessel. It had about 20 % residual stenosis noted. 3. Ramus intermedius is a large size vessel. It is a very tortuous vessel, which has about 60% evgeny nosis. 4. Left femoral artery is a very small vessel with 50% ostial stenosis. 5. Right coronary is a large dominant vessel. Distal stent is widely patent. Mid-level has a 40% stenosis. TOTAL CONTRAST USED: 120 mL of Visipaque. CONCLUSION: Successful PTCA stent at the takeoff of the LAD and diagonal. RECOMMENDATIONS: Aggressive medical therapy. Dictated By: KEVON NAJERA/PAULETTE Conf#: [id number] DID#: [id number]
[2017-01-10] MEDS: ATORVASTATIN 80 MG TAB PO SCH (20:13)
[2017-01-10] MEDS: LEVOTHYROXINE 100 MCG TAB PO SCH (20:13)
[2017-01-11] VITALS (18 sets, daily range): BP systolic 84–134; BP diastolic 41–119; PULSE 43–67; RESP 9–21
[2017-01-11 06:13] LABS: ALBUMIN 3.4 g/dl (3.3-4.9)
[2017-01-11 06:14] LABS: POTASSIUM 4.7 mmol/L (3.5-5.1)
[2017-01-11 06:16] LABS: BILIRUBIN,INDIRECT 0.7 mg/dl (0-1.1); BILIRUBIN,TOTAL 0.7 mg/dl (0.2-1.3); CREATININE 0.91 mg/dl (0.61-1.24)
[2017-01-11 06:17] LABS: ALBUMIN/GLOBULIN RATIO 1.3; CALCIUM 9.5 mg/dl (8.4-10.2)
[2017-01-11 06:25] LABS: CK-MB 4.31 ng/ml (0.0-2.4)
[2017-01-11 06:33] LABS: TROPONIN-I 5.62 ng/ml (0.00-0.12)
--- NOTE | 2017-01-11 07:52 | PN ---
DATE: 01/11/2017 CARDIOLOGY FOLLOWUP SUBJECTIVE: Discussed with the staff. Rhythm strip was reviewed. The patient remains in sinus rhy thm, sinus bradycardia. No chest pain or pressure. No hand pain, no numbness. No palpitatio n. MEDICATIONS: Reviewed as per medical reconciliation, personally reviewed, which include: 1. Mu[place] st. 2. Aspirin. 3. Lisinopril 2.5. 4. Brilinta. 5. Isordil. 6. Colace. 7. Pepcid. 8. Lipitor. 9. Levothyroxine. PHYSICAL EXAMINATION: VITAL SIGNS: Temperature 98.2, heart rate of 45, blood pressure 117/51, respiratory rate of 12. HEENT: Normocephalic, atraumatic. No acute distress. Pupils equal and round. CARDIOVASCULAR: Bradycardic, otherwise no murmur or gallop appreciated. PULMONARY: With no wheezes, no rhonchi. GASTROINTESTINAL: Soft, nontender. EXTREMITIES: With no significant edema. VASCULAR: Left radial artery intact. NEUROLOGICAL: No numbness, weakness. LABORATORY: Sodium 144, potassium 4.7, BUN of 18, creatinine 0.91, glucose of 118. CK has come amanda n to 90 with MB fraction of 4.3. Troponin come down to 5.6. ASSESSMENT AND PLAN: 1. Acute inferior ST elevation myocardial infarction. 2. coronary artery disease, status post percutaneous coronary intervention of the left anteri or descending and diagonal. 3. Hypertension. 4. Dyslipidemia. 5. Sinus bradycardia for which he has been taken off of beta blockers. 6. Hypothyroidism, on Synthroid. RECOMMENDATIONS: I will stop the Isordil because of bradycardia as well as patient with more angina l chest pain after revascularization. Increase the lisinopril to 5 mg. Continue with aspirin and B rilinta. Continue the rest of his cardiac care. Discharge planning for today as long as it is okay with the primary team. The patient has been scheduled to follow with me within the next 2 weeks. Dictated By: KEVON MEADOWS MD AV/PAULETTE Conf#: [id number] DID#: [id number]
[2017-01-11] MEDS: ASPIRIN (EC) 81 MG TAB PO SCH (08:10)
[2017-01-11] MEDS: ACETYLCYSTEINE 600 MG CAP PO SCH (08:13)
[2017-01-11] MEDS: TICAGRELOR 90 MG TABLET PO SCH (08:13)
[2017-01-11] MEDS: DOCUSATE SODIUM 100 MG CAP PO SCH (08:13)
[2017-01-11] MEDS: FAMOTIDINE 20 MG TAB PO SCH (08:13)
--- NOTE | 2017-01-11 08:25 | PDOCDIS ---
Discharge Instructions DIAGNOSIS Discharge Diagnosis: STEMI; hypertension; hyperlipidemia; prostate cancer; organic brain syndrom CONDITION Patient Condition: Good HOME CARE INSTRUCTIONS: Special Diet: 2 grams sodium diet ACTIVITY: Activity Restrictions: Slowly Increase Activity Do not operate [employer] Cardiac Rehab FOLLOW UP/APPOINTMENTS Appointments Follow-up with cardiology; in 2 weeks; follow up with Dr. Zarate in 3 weeks UBALDO ZARATE MD Jan 11, 2017 08:25
[2017-01-11] MEDS ORDERED: TICA90TA PO (08:27)
[2017-01-11] MEDS ORDERED: LISI-313 PO (08:27)
[2017-01-11] MEDS ORDERED: ATOR80TA75 PO (08:27)
--- NOTE | 2017-01-11 08:31 | DS ---
Date/Time of Note Date/Time of Note DATE: 01/11/17 TIME: 08:27 Discharge Summary Admission/Discharge Info Admit Date/Time Jan 08, 2017 at 16:45 Discharge Date/Time 01/11/2017 Final Diagnosis STEMI; status post PCI with stenting of right coronary artery left anterior descending and diagonal; hypertension; hyperlipidemia; prostate cancer; organic brain syndrome; overweight Patient Condition: Good Consults Cardiology; Procedures PROCEDURE PERFORMED: 1. Emergent left heart catheterization, selective right and left coronary angiography. 2. Thrombectomy, right coronary artery. 3. Successful percutaneous transluminal coronary angioplasty and stenting of the distal right coronary artery from 100% occlusion to no significant residual stenosis using a 3 x 12 mm Promus drug-eluting stent, post-dilating with a 3.5 noncompliant balloon. 4. Right femoral angiogram and closure of right femoral artery using a Perclose device. 1. Selective right and left coronary angiography. 2. Successful direct stenting of the mid LAD using a 2.75 x 12 mm Promus drug- eluting stent. 3. Successful percutaneous transluminal coronary angioplasty stenting of the diagonal using a 2.25 x 26 mm Resolute drug-eluting stent. Echocardiogram; Hx of Present Illness Mr. Vidales is a retired 76-year-old male, relatively active, teaches golf to young people, active around the house with generally no complaints. He has history of hypothyroidism, glaucoma, and prostate cancer, all which have been well controlled. The patient was working in the yard on the day of admission when he suddenly had a peculiar feeling in his chest and started to feel sick, had multiple episodes of clear fluid vomiting, tried to lie down, felt no better, and came to the emergency room where he was found to have acute STEMI in with indications of inferior myocardial infarction. He was seen by Dr. Cano in the ER, taken to cathode [facility] where he had a totally occluded right coronary artery, which was opened successfully. The patient's troponins were obviously high. He has had some episodes of nonsustained ventricular tachycardia post-catheterization requiring one episode of intravenous amiodarone. The patient currently is asymptomatic, feels well. The thought is that further angiographic evaluation should proceed tomorrow. Hospital Course 76-year-old male came in with a STEMI. Taken from the emergency room directly to the Education Administrator and had the right coronary artery opened for the inferior wall [place] that was ongoing. This was successful. The course of the evaluation he had 2 other cardiac lesions identified. He was subsequently brought back on the second date and had percutaneous angioplasty and stenting of the LAD and the diagonal arteries. He tolerated all the above without complications including noted disturbance of renal function. He is now markedly improved condition as compared to the time of admission is stable for discharge on outpatient medication regimen as outlined in the discharge instructions. He has no known communicable diseases he is not a hazard to himself or others his rehabilitation potential is good. Home Meds Active Scripts Ticagrelor* (Brilinta*) 90 Mg Tablet, 90 MG PO BID for 30 Days, TAB 6 Refills Prov:UBALDO SERVIN MD 01/11/17 Lisinopril* (Lisinopril*) 5 Mg Tablet, 5 MG PO DAILY for 30 Days, TAB 6 Refills Prov:UBALDO SERVIN MD 01/11/17 Atorvastatin* (Atorvastatin*) 80 Mg Tablet, 80 MG PO DAILY@21 for 30 Days, TAB 5 Refills Prov:UBALDO SERVIN MD 01/11/17 Reported Medications Aspirin (Aspirin) 81 Mg Tablet, 81 MG PO DAILY 12/11/12 Latanoprost (Xalatan) 2.5 Ml Drops, 2.5 ML OP HS 1 GTT BOTH EYES 12/11/12 Silodosin (Rapaflo) 8 Mg Capsule, 8 MG PO HS 12/11/12 Levothyroxine Sodium* (Levoxyl*) 100 Mcg Tablet, 100 MCG PO HS 12/11/12 Pending Labs Laboratory Tests Test 01/11/17 05:20 Alanine Aminotransferase (ALT/SGPT) 45IU/L (13-69) Albumin 3.4g/dl (3.3-4.9) Albumin/Globulin Ratio 1.30 Alkaline Phosphatase 55IU/L (42-121) Anion Gap 13 (8-16) Aspartate Amino Transf (AST/SGOT) 54IU/L (15-46) Blood Urea Nitrogen 18mg/dl (7-20) Calcium Level 9.5mg/dl (8.4-10.2) Carbon Dioxide Level 29mmol/L (21-31) Chloride Level 107mmol/L (97-110) Creatine Kinase 90IU/L (23-200) Creatine Kinase Index 4.8 Creatinine 0.91mg/dl (0.61-1.24) Creatinine Kinase MB (Mass) 4.31ng/ml (0.0-2.4) Direct Bilirubin 0.00mg/dl (0.00-0.20) Globulin 2.60g/dl (1.3-3.2) Glucose Level 118mg/dl (70-220) Indirect Bilirubin 0.7mg/dl (0-1.1) Potassium Level 4.7mmol/L (3.5-5.1) Sodium Level 144mmol/L (135-144) Total Bilirubin 0.7mg/dl (0.2-1.3) Total Protein 6.0g/dl (6.1-8.1) Troponin I 5.620ng/ml (0.00-0.12) UBALDO SERVIN MD Jan 11, 2017 08:31
[2017-01-11 08:55] LABS: BASOPHILS % 0.4 % (0.0-2.0); EOSINOPHILS # 0.5 10^3/ul (0.0-0.5); EOSINOPHILS % 5.9 % (0.0-7.0); HEMATOCRIT 38.7 % (42.0-52.0); HEMOGLOBIN 13.4 g/dl (14.0-18.0); LYMPHOCYTES # 2.2 10^3/ul (0.8-2.9); LYMPHOCYTES % 27.9 % (15.0-51.0); MEAN CORPUSCULAR HEMOGLOBIN 30.1 pg (29.0-33.0); MEAN CORPUSCULAR HGB CONC 34.6 g/dl (32.0-37.0); MEAN PLATELET VOLUME 8.7 fl (7.4-10.4); MONOCYTE # 0.8 10^3/ul (0.3-0.9); MONOCYTES % 9.5 % (0.0-11.0); NEUTROPHIL # 4.5 10^3/ul (1.6-7.5); NEUTROPHILS % 56.3 % (39.0-77.0); PLATELET COUNT 176 10^3/UL (140-440); RED BLOOD COUNT 4.45 10^6/ul (4.70-6.10); RED CELL DISTRIBUTION WIDTH 13.6 % (11.5-14.5); UNCORRECTED WBC 8.1 10^3/ul (4.8-10.8); WHITE BLOOD COUNT 8.1 10^3/ul (4.8-10.8)
[2017-01-11] MEDS ORDERED: LISINOPRIL 5 MG TAB PO SCH (09:00)
[2017-01-11 09:03] LABS: CONDITION 1
--- NOTE | 2017-01-11 15:30 | RADRPT ---
Vent Rate: 0 bpm RR Interval: 0 msec [place] Interval: 0 msec QRS Duration: 0 msec QT Interval: 0 msec QTC Interval: 0 msec P-R-T [place]: 0 - 0 - 0 degrees Electronically Signed By: Chinedu Whitmore [id number]
--- NOTE | 2017-01-11 15:48 | RADRPT ---
Vent Rate: 53 bpm RR Interval: 0 msec [place] Interval: 168 msec QRS Duration: 112 msec QT Interval: 468 msec QTC Interval: 439 msec P-R-T [place]: 55 - 24 - 17 degrees Sinus bradycardia Otherwise normal ECG Electronically Signed By: Chinedu Whitmore [id number]
--- NOTE | 2017-01-11 16:01 | RADRPT ---
Vent Rate: 49 bpm RR Interval: 0 msec [place] Interval: 166 msec QRS Duration: 116 msec QT Interval: 458 msec QTC Interval: 413 msec P-R-T [place]: 24 - 46 - -16 degrees Marked sinus bradycardia Cannot rule out Inferior infarct , age undetermined Abnormal ECG Electronically Signed By: Chinedu Whitmore [id number]
== END 2017-01-11 09:45 | disposition home or self-care (01) | DRG 247 ==
LOC: E/R 15:31 → CCL 15:53 → SDS 15:53 → CCL 16:40 → ICU 16:45
PROVIDERS: ADMIT Internal Medicine Interventional Cardiology; ATTEND Internal Medicine Interventional Cardiology
PROC: 02C03ZZ Extirpation of Matter from Coronary Artery, One Artery, Percutaneous Approach (ICD-10-PCS; principal; 2017-01-08)
PROC: 027034Z Dilation of Coronary Artery, One Artery with Drug-eluting Intraluminal Device, Percutaneous Approach (ICD-10-PCS; 2017-01-08)
PROC: 4A023N7 Measurement of Cardiac Sampling and Pressure, Left Heart, Percutaneous Approach (ICD-10-PCS; 2017-01-08)
PROC: B211YZZ Fluoroscopy of Multiple Coronary Arteries using Other Contrast (ICD-10-PCS; 2017-01-08)
PROC: B215YZZ Fluoroscopy of Left Heart using Other Contrast (ICD-10-PCS; 2017-01-08)
PROC: 027034Z Dilation of Coronary Artery, One Artery with Drug-eluting Intraluminal Device, Percutaneous Approach (ICD-10-PCS; 2017-01-11)
PROC: B211YZZ Fluoroscopy of Multiple Coronary Arteries using Other Contrast (ICD-10-PCS; 2017-01-11)
DX: I21.19 ST elevation (STEMI) myocardial infarction involving other coronary artery of inferior wall (principal); I47.2 Ventricular tachycardia; C61 Malignant neoplasm of prostate; R00.1 Bradycardia, unspecified; I10 Essential (primary) hypertension; E78.5 Hyperlipidemia, unspecified; I25.118 Atherosclerotic heart disease of native coronary artery with other forms of angina pectoris; Z92.3 Personal history of irradiation; E03.9 Hypothyroidism, unspecified; H40.9 Unspecified glaucoma
CPT/HCPCS: 36415; 71010; 80048; 80053; 80061; 82550; 82553; 83735; 83880; 84439; 84443; 84484; 85025; 85610; 85730; 87081; 93005; 93306; 93458; 96374; C1725; C1757; C1760; C1769; C1874; C1887; C1894; C9600; C9601; C9606; J0282; J0583; J1644; J2250; J3010; J3475; J7030; J7040; Q9967

== ENCOUNTER → 2017-02-21 | Outpatient (CLI) | payer MEDICARE, BC ==
[~2017-02-21] MED LIST changes: +ATOR80TA75 PO; +LISI-313 PO; +TICA90TA PO
== END | disposition home or self-care (01) ==
LOC: CRE 09:25 → EDSTATUS 14:41
PROVIDERS: ATTEND Internal Medicine
DX: Z95.5 Presence of coronary angioplasty implant and graft (principal); I25.2 Old myocardial infarction
CPT/HCPCS: 93797

== ENCOUNTER 2018-03-08 16:29 | Emergency (ER) | END 2018-03-08 18:20 | disposition home or self-care (01) ==